=== PATIENT | female | born 1990 | race Two or more races ===

== ENCOUNTER 2021-08-31 13:49 | Emergency (ER) | payer MEDICAID ==
[~2021-08-31] VITALS: Ht 147.3 cm; Wt 75.3 kg
[2021-08-31 13:55] VITALS: BP 140/77
[2021-08-31] MEDS ORDERED: IBUP800T27 PO (15:45)
[2021-08-31] MEDS ORDERED: METH750T22 PO (15:45)
== END 2021-08-31 15:57 | disposition home or self-care (01) ==
LOC: ER 13:49
DX: S86.912A Strain of unspecified muscle(s) and tendon(s) at lower leg level, left leg, initial encounter (principal); X58.XXXA Exposure to other specified factors, initial encounter; Y93.89 Activity, other specified; Y92.89 Other specified places as the place of occurrence of the external cause; Y99.8 Other external cause status
CPT/HCPCS: 93971